=== PATIENT | female | born 1990 | race Caucasian/White ===

== ENCOUNTER → 2017-06-25 | Outpatient (CLI) | payer BC ==
[~2017-06-25] VITALS: Ht 162.6 cm; Wt 107.5 kg
[~2017-06-25] MED LIST: DOCUSATE SODIU100 MG PO; ENDOCET 5-3251 EACH PO; MOTRIN800 MG PO; PRENATAL CAPLE1 EACH PO
== END | disposition home or self-care (01) ==
LOC: AMB 09:58
PROC: 0DBN8ZX Excision of Sigmoid Colon, Via Natural or Artificial Opening Endoscopic, Diagnostic (ICD-10-PCS; principal; 2017-06-25)
DX: K63.5 Polyp of colon (principal); K64.8 Other hemorrhoids; Z80.0 Family history of malignant neoplasm of digestive organs; E78.5 Hyperlipidemia, unspecified; E66.9 Obesity, unspecified; Z68.41 Body mass index [BMI] 40.0-44.9, adult; E06.5 Other chronic thyroiditis; E55.9 Vitamin D deficiency, unspecified; Z82.79 Family history of other congenital malformations, deformations and chromosomal abnormalities
CPT/HCPCS: 88305; J2250